=== PATIENT | female | born 1945 | race Hispanic/Latino ===

== ENCOUNTER → 2020-08-06 | Outpatient (CLI) | payer MEDICARE ==
[~2020-08-06] MED LIST: AMLO10TA7 PO; BENA40TA9 PO
== END | disposition home or self-care (01) ==
LOC: RAH 13:41
PROVIDERS: ATTEND Orthopaedic Surgery
DX: S83.241A Other tear of medial meniscus, current injury, right knee, initial encounter (principal); S83.281A Other tear of lateral meniscus, current injury, right knee, initial encounter; M71.21 Synovial cyst of popliteal space [Baker], right knee; M94.261 Chondromalacia, right knee; M25.461 Effusion, right knee; M25.761 Osteophyte, right knee; X58.XXXA Exposure to other specified factors, initial encounter; Y93.89 Activity, other specified; Y92.89 Other specified places as the place of occurrence of the external cause; Y99.8 Other external cause status
CPT/HCPCS: 73721

== ENCOUNTER → 2020-10-19 | Outpatient (CLI) | payer OTHER ==
[~2020-10-19] MED LIST changes: +AMLO-258 PO; -AMLO10TA7 PO
== END | disposition home or self-care (01) ==
LOC: RAH 14:11
PROVIDERS: ATTEND Family Medicine
DX: Z13.6 Encounter for screening for cardiovascular disorders (principal)
CPT/HCPCS: 75571

== ENCOUNTER → 2024-06-06 | Outpatient (CLI) | payer MEDICARE ==
[~2024-06-06] MED LIST changes: -BENA40TA9 PO; +BENA40TA92 PO; +IOHEXOL 350 MG/ML 100ML INFUS..BTL IV ONE; +METOPROLOL TARTRATE 1 MG/ML 5ML VIAL IV ONE
== END | disposition home or self-care (01) ==
LOC: RAH 11:11
PROVIDERS: ATTEND Internal Medicine Cardiovascular Disease
DX: I25.119 Atherosclerotic heart disease of native coronary artery with unspecified angina pectoris (principal); M47.815 Spondylosis without myelopathy or radiculopathy, thoracolumbar region; R07.9 Chest pain, unspecified
CPT/HCPCS: 75574; J3490; Q9967

== ENCOUNTER 2025-03-20 22:26 | Emergency (ER) | payer MEDICARE ==
[~2025-03-20] VITALS: Ht 157.5 cm; Wt 75.7 kg
[~2025-03-20 22:26] MED LIST changes: -IOHEXOL 350 MG/ML 100ML INFUS..BTL IV ONE; -METOPROLOL TARTRATE 1 MG/ML 5ML VIAL IV ONE
--- NOTE | 2025-03-20 23:23 | HMCIMG ---
CT HEAD/BRAIN W/O CONTRAST HISTORY: Status post fall COMPARISON: None TECHNIQUE: Multiple sequential axial images of the head were obtained from the base of the skull through vertex. Patient was not given contrast through intravenous route. FINDINGS: The ventricles and extraventricular CSF spaces are dilated consistent with cerebral atrophy. Nonspecific white matter changes seen. There is no midline shift, mass effect or herniation. No acute intracranial bleed is seen. Visualized portion of the paranasal sinuses are grossly within normal limits. Posterior processes is significantly limited due to arachnoid cyst versus layne cisterna magnum. IMPRESSION: 1. No acute intracranial bleed is seen. 2. Atrophy with white matter changes. CT was performed with one or more following dose reduction techniques: automated exposure control, adjustment of the mA and kv according to patient's size, or use of a iterative reconstruction technique.
--- NOTE | 2025-03-20 23:24 | HMCIMG ---
CT CERVICAL SPINE W/O CONTRAST HISTORY: No additional history given. COMPARISON: None TECHNIQUE: Multiple sequential axial images of the cervical spine were obtained including post processing sagittal and coronal reconstruction images. Patient was not given contrast through intravenous route. FINDINGS: There is straightening of normal lordotic cervical curvature which may be related to muscle spasm or positioning. There is no loss of vertebral height. Evaluation for disc and cord pathology is limited with CT study. No evidence of fracture or dislocation is seen. There are degenerative changes of cervical spine spondylosis. Disc space narrowing is seen at the C6-7 level. IMPRESSION: 1. No fracture is seen. DJD. CT was performed with one or more following dose reduction techniques: automated exposure control, adjustment of the mA and kv according to patient's size, or use of a iterative reconstruction technique.
[2025-03-20] MEDS: acetaMINOPHEN 325 MG TAB PO ONE (23:32)
--- NOTE | 2025-03-21 00:16 | ERN ---
ED Note History of Present Illness Stated Complaint: FALL Chief Complaint: Mechanical Fall Time Seen by MD: 22:29 Time Seen by Midlevel: 22:29 Dictation: The patient is an 79-year-old female with a history of hypertension presents to the emergency department after a fall around 8:30 p.m.. Patient reports she tripped and fell over a water hose while outside. Patient reports she drive the right side of her head but denies any LOC, nausea or vomiting, use of blood thinners. Patient reports right upper arm pain. Denies any back pain, neck pain, abdominal or chest pain. Denies any hip pain or lower extremity pain Allergies: Coded Allergies: No Known Drug Allergies (Unverified Allergy, Unknown, 06/15/15) Home Meds Reported Medications Amlodipine Besylate (Amlodipine Besylate) 10 Mg Tablet, 10 MG PO DAILY, TAB 06/15/15 Benazepril HCl (Benazepril HCl) 40 Mg Tablet, 40 MG PO DAILY, TAB 06/15/15 Past Medical History Past Medical History: High Cholesterol, Heart Disease, Hypertension Surgical History: None RN Note Reviewed/Agreed w/PFSH: Yes Review of System Dictation Constitutional: Negative for fever,chills, and weight loss Eyes: Negative for injury, pain,redness, and discharge ENT: Negative for injury,pain or swelling Cardiovascular: Negative for chest pain, palpitations, and edema Respiratory: Negative for shortness of breath, cough, and wheezing, Abdomen/GI: Negative for abdominal pain, nausea, vomiting, diarrhea, and constipation Back: Negative for injury and pain : Negative for injury, bleeding and discharge MS/Extremity: Positive for right arm pain Skin: Negative for rash, and discoloration Neuro: Negative for headache, weakness, numbness, tingling, and seizure Psych: Negative for suicide ideation, homicidal ideation, and hallucinations Initial Vital Sign VS Vital Signs Date Time Temp Pulse Resp B/P (MAP) Pulse Ox O2 Delivery O2 Flow Rate FiO2 03/20/25 22:28 97.9 75 16 135/61 99 Room Air Physical Exam Dictation Vital Signs reviewed General Appearance: Alert, oriented x 3, no acute distress, well developed, nourished. Head and Face: non-traumatic. Eyes: PERRL, pink conjunctivas, eyelid no trauma, anterior chamber with arcus senilis. Ears: Pinnas intact and no signs of trauma or erythema ear canals clear and no discharge TM no erythema Nose: No discharge, no bleeding. Oropharynx: Mouth normal, tongue pink. pharynx clear,no erythema, tonsils no exudates, no abscesses noted, mucous membrane moist Neck: Supple, non-tender, no thyromegaly, no masses, no JVD, no bruits Breast:Deferred Chest:No tenderness, no crepitus, no paradoxical movement, no retractions Lungs:Clear, well-ventilated, symmetric, no rales, no wheezing, no rhonchi, no stridor, good breath sounds bilaterally Heart: Regular rate, regular rhythm, no murmur, no gallops Vascular: no peripheral edema, radial pulses 3+ bilaterally Abdomen: Soft, positive bowel sounds, nondistended, no guarding, nontender, no rebound, no masses no hepatomegaly, no splenomegaly, no Rivers's sign, no hernias. Rectal: Deferred Genital: Deferred Neurological: Normal speech, motor function intact, sensory function intact Musculoskeletal: Neck nontender, full range of motion, back nontender, full range of motion, Extremities: nontender, full range of motion , cap refill less than 2 seconds. Skin: Color pink, dry, no turgor, no rash, no lacerations, no abrasions, no contusions. 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 COMPARISON: None TECHNIQUE: Multiple sequential axial images of the cervical spine were obtained including post processing sagittal and coronal reconstruction images. Patient was not given contrast through intravenous route. FINDINGS: There is straightening of normal lordotic cervical curvature which may be related to muscle spasm or positioning. There is no loss of vertebral height. Evaluation for disc and cord pathology is limited with CT study. No evidence of fracture or dislocation is seen. There are degenerative changes of cervical spine spondylosis. Disc space narrowing is seen at the C6-7 level. IMPRESSION: 1. No fracture is seen. DJD. CT was performed with one or more following dose reduction techniques: automated exposure control, adjustment of the mA and kv according to patient's size, or use of a iterative reconstruction technique. REASON: fall, head strike ORDERING PHYSICIAN: MITA RAHMAN PROCEDURE: HEAD WO - CT HEAD/BRAIN W/O CONTRAST CT HEAD/BRAIN W/O CONTRAST HISTORY: Status post fall COMPARISON: None TECHNIQUE: Multiple sequential axial images of the head were obtained from the base of the skull through vertex. Patient was not given contrast through intravenous route. FINDINGS: The ventricles and extraventricular CSF spaces are dilated consistent with cerebral atrophy. Nonspecific white matter changes seen. There is no midline shift, mass effect or herniation. No acute intracranial bleed is seen. Visualized portion of the paranasal sinuses are grossly within normal limits. Posterior processes is significantly limited due to arachnoid cyst versus layne cisterna magnum. IMPRESSION: 1. No acute intracranial bleed is seen. 2. Atrophy with white matter changes. CT was performed with one or more following dose reduction techniques: automated exposure control, adjustment of the mA and kv according to patient's size, or use of a iterative reconstruction technique. Labs Reviewed?: Yes ED Course ED Course Orders Procedure Category Date Status Time Ct Head/Brain W/O CT 03/20/25 Resulted Contrast 22:37 Ct Cervical Spine W/O CT 03/20/25 Resulted Contrast 22:37 Humerus 2+Vws Rt RAD 03/20/25 Taken 22:37 Acetaminophen 325 Tab PHA 03/20/25 Complete (Tylenol 325mg Tab 23:00 Current Medications Medications (Trade) Dose Ordered Sig/Nay Route PRN Reason Start Time Stop Time Status Last Admin Dose Admin Acetaminophen (TYLenol 325MG TAB) 650 mg ONCE ONCE PO 03/20/25 23:00 03/20/25 23:01 DC 03/20/25 23:32 Vital Signs Date Time Temp Pulse Resp B/P (MAP) Pulse Ox O2 Delivery O2 Flow Rate FiO2 03/20/25 22:28 97.9 75 16 135/61 99 Room Air Medical Decision Making MDM The patient is an 79-year-old female with a history of hypertension presents to the emergency department after a fall around 8:30 p.m.. Patient reports she tripped and fell over a water hose while outside. Patient reports she drive the right side of her head but denies any LOC, nausea or vomiting, use of blood thinners. Patient reports right upper arm pain. Denies any back pain, neck pain, abdominal or chest pain. Denies any hip pain or lower extremity pain CT head showed no acute bleeding. C-spine showed no acute fractures or dislocations No obvious fracture seen on x-ray. Patient continues neurologically intact, ambulatory. Full range of motion to right arm. Neurovascularly intact No obvious wounds. No other injuries noted. Patient in no acute distress will be discharged to follow up PCP. Differential diagnosis: Intracerebral hemorrhage, head contusion, humerus fracture, C-spine fracture Need for hospitalization: Patient does not meet criteria for hospitalization. There are no social concerns with this patient. DX & DISP Disposition: Discharge Departure Impression: Primary Impression: Ground-level fall Additional Impressions: Head contusion, Contusion of right arm Condition: Stable Additional Instructions: Please follow up with your primary doctor in 1-2 days. If symptoms worsen, you develop severe nausea or vomiting, altered level of consciousness please return to ER. FOLLOW-UP WITH PRIMARY CARE PROVIDER IN 1 TO 2 DAYS. TAKE MEDICATIONS DIRECTED HERE IN THE EMERGENCY ROOM. OKAY TO CONTINUE HOME MEDICATIONS UNLESS OTHERWISE DISCUSSED DURING YOUR VISIT IN THE EMERGENCY ROOM TODAY. RETURN TO YOUR NEAREST EMERGENCY ROOM IF SYMPTOMS WORSEN OR IF THERE IS NO IMPROVEMENT. CALL 911 IF YOU NEED IMMEDIATE ASSISTANCE. TAKE TYLENOL OR MOTRIN [id number] NEEDED AND IF NO CONTRAINDICATIONS ARE PRESENT. INCREASE ORAL HYDRATION. A WOUND CULTURE OR URINE CULTURE WAS ORDERED HERE IN THE EMERGENCY ROOM DEPARTMENT PLEASE FOLLOW-UP WITH PRIMARY CARE PROVIDER AND ADVISE THEM TO GET REPEAT PORTS FROM OUR FACILITY. IF YOU HAD ANY JACOB WRAP/SPLINTS THAT WERE APPLIED HERE, PLEASE DO NOT REMOVE THEM UNTIL YOU SEE YOUR PRIMARY CARE OR SPECIALTY. Referrals: SELF,REFERRAL (PCP) Time of Disposition: 00:16 I have reviewed the case, and I agree with, Diagnosis and Plan MITA RAHMAN March 21, 2025 00:16
--- NOTE | 2025-03-21 00:18 | NUR ---
SLING APPLIED TO R ARM
[2025-03-21 00:23] VITALS: BP 133/69; PULSE 73; RESP 18; TEMP 98.2; O2SAT 98
--- NOTE | 2025-03-21 09:37 | HMCIMG ---
HUMERUS 2+VWS RT HISTORY: Status post fall COMPARISON: None TECHNIQUE: 2 images of right humerus were obtained. FINDINGS: There is no acute displaced fracture or dislocation. Degenerative changes are seen. IMPRESSION: 1. Findings as described above.
== END 2025-03-21 00:24 | disposition home or self-care (01) ==
LOC: EDH 22:26
DX: S00.93XA Contusion of unspecified part of head, initial encounter (principal); S40.021A Contusion of right upper arm, initial encounter; E78.00 Pure hypercholesterolemia, unspecified; I11.9 Hypertensive heart disease without heart failure; Z79.899 Other long term (current) drug therapy; W01.0XXA Fall on same level from slipping, tripping and stumbling without subsequent striking against object, initial encounter; Y93.89 Activity, other specified; Y92.89 Other specified places as the place of occurrence of the external cause; Y99.8 Other external cause status
CPT/HCPCS: 70450; 72125; 73060; 99284